=== PATIENT | female | born 1990 | race Caucasian/White ===

== ENCOUNTER → 2018-11-03 14:09 | Outpatient (POV) | payer BC, SELFPAY | PROVIDERS: Visit Provider Dermatology | DX: Z00.00 Encounter for general adult medical examination without abnormal findings (principal) ==

== ENCOUNTER → 2021-08-13 12:49 | Outpatient (CLI) | payer BC, SELFPAY | PROVIDERS: Visit Provider Internal Medicine Adolescent Medicine | DX: R35.0 Frequency of micturition (principal); B96.20 Unspecified Escherichia coli [E. coli] as the cause of diseases classified elsewhere | CPT/HCPCS: 87086; 87088; 87186 ==

== ENCOUNTER 2023-08-26 10:21 | Outpatient (CLI) | payer BC, SELFPAY ==
--- NOTE | 2023-08-26 10:29 | XR_ITS ---
FINAL REPORT TECHNIQUE: Chest PA & Lateral CLINICAL HISTORY: COUGH pt 25 weeks , shielded FINDINGS: 2 views of the chest were performed. The heart size is normal. The mediastinum is within normal limits. There is no acute cardiopulmonary process. There are no pleural effusions. There is no pneumothorax. The bony thorax appears intact. IMPRESSION: No acute cardiopulmonary process. Reviewed, Interpreted and Dictated by Brijesh Rothman III, MD Transcribed by Jamari Dorsey Authenticated and [facility]
--- NOTE | 2023-08-26 10:29 | XR_ITS ---
FINAL REPORT CLINICAL HISTORY: RT RIB PAIN pt 25 weeks , shielded FINDINGS: 2 views of the right ribs were obtained. There is no acute fracture. The visualized lungs are clear. No pneumothorax is identified. IMPRESSION: No rib fracture or pneumothorax identified. Reviewed, Interpreted and Dictated by Brijesh Rothman III, MD Transcribed by Jamari Dorsey Authenticated and [facility]
== END 2023-08-26 23:59 ==
LOC: RAD 10:22
PROVIDERS: PCP Internal Medicine Adolescent Medicine; Visit Provider Internal Medicine Adolescent Medicine
DX: R05.9 Cough, unspecified (principal); R07.81 Pleurodynia
CPT/HCPCS: 71046; 71100

== ENCOUNTER 2024-02-02 07:41 | Outpatient (CLI) | payer BC, SELFPAY ==
--- NOTE | 2024-02-02 07:44 | MR_ITS ---
FINAL REPORT TECHNIQUE: Multiplanar MR without gadolinium enhancement CLINICAL HISTORY: NEUROPATHY OF RIGHT UPPER EXTREMITY. PAIN BETWEEN SCapulas. numbness bilateral 4th digits. COMPARISON: None FINDINGS: Limited images of the posterior fossa are unremarkable. Alignment is normal. Cervical spinal cord shows normal signal and contour. C2-3: Unremarkable C3-4: There is a right lateral canal disc osteophyte complex, which results in moderate right neural foraminal narrowing. No central canal stenosis is present. C4-5: A minimal annular bulge is present without evidence of canal stenosis. C5-6: A minimal annular bulge is present without evidence of canal stenosis. C6-7: Unremarkable C7-T1: Unremarkable IMPRESSION: Right lateral canal disc osteophyte complex results in moderate right neural foraminal narrowing without evidence of central canal stenosis. Minimal annular bulges at the C4-5 and C5-6 levels. Reviewed, Interpreted and Dictated by Zakiya Wyman MD Transcribed by Danae Maradiaga Authenticated and [facility]
== END 2024-02-02 23:59 | disposition home or self-care (01) ==
LOC: RAD 07:42
PROVIDERS: PCP Internal Medicine Adolescent Medicine; Visit Provider Internal Medicine Adolescent Medicine
DX: M54.2 Cervicalgia (principal); G56.91 Unspecified mononeuropathy of right upper limb; G56.92 Unspecified mononeuropathy of left upper limb
CPT/HCPCS: 72141

== ENCOUNTER 2025-01-11 08:44 | Outpatient (RCR) | payer BC, SELFPAY ==
--- NOTE | 2025-01-11 09:53 | HMH.PTOPEV ---
PT Outpatient Evaluation Rehab PT Outpatient Evaluation Start: 01/11/25 08:50 Freq: Status: Active Protocol: Document 01/11/25 08:50 KEYONNA (Rec: 01/11/25 09:51 KEYONNA [id number]) E-signed By Kayden Roth, PT Outpatient Therapy Subjective History Subjective History Pt is a 34 yof who is referred to [facility] outpatient PT with complaints of R sided neck/ shoulder pain and occasional numbness into her R hand. The pt describes her the numbness as constantly into her 4th and 5th digits but then occasionally will be her entire hand. She describes a constant tightness into her neck and R shoulder. She also reports occasional coolness to her R hand and throbbing into her R hand. 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 Pt reports that her symptoms are worsened with sleeping, driving, mowing, holding her baby and doing [place] activity. Pt reports that she had a massage last week, which helped a lot temporarily. Occupation: [employer] agent PMH: Section x2 New diagnosis of cancer in past 12 No months? Chief Complaint Pain,Paresthesia Symptom Type Dull,Numbness,Tingling Symptoms Relieved By OTC Meds Symptoms Aggravated By Supine,Physical Activity Prior Functional Limitations None Current Functional Limitations Reaching,Housework,Desk Work/ Reading,Driving,Sleeping Symptom Description Constant but Variable,Activity Dependent Level of pain today (0-10) 5 Pain scale - at its best (0-10) 2 Pain scale - at its worst (0-10) 8 Cervical Eval Palpation Cervical Muscles R CT Junction,R Thoracic Paraspinals Cervical/Thoracic Palpation Findings Tenderness,Trigger Point Flexibility Deficits Upper Trapezius Muscle Length (R) Moderate Tightness Scalene Group Muscle Length (R) Moderate Tightness Pectoralis Minor Muscle Length (R) Moderate Tightness Passive Joint Mobility Cervical PIVM Dec: R C5/6 R C6/7 R C7/T1 AROM Cervical Spine Extension Active Range of 50 Motion (degrees) Cervical Spine Flexion Active Range of 50 Motion (degrees) Cervical Spine Right Lateral Flexion 35 Active Range of Motion (degrees) Cervical Spine Left Lateral Flexion 30 Active Range of Motion (degrees) Cervical Spine Right Rotation Active 35 Range of Motion (degrees) Cervical Spine Left Rotation Active 30 Range of Motion (degrees) MMT Right Deltoid (C5) 4 Good Biceps Brachii Strength Grade 5 Normal Wrist Extension Strength Grade 5 Normal Triceps Brachii Strength Grade 5 Normal Wrist Flexion Strength Grade 5 Normal Extensor Pollicis Longus Strength Grade 5 Normal Finger Abduction Strength Grade 5 Normal DTR Rt Biceps 1+ Lt Biceps 1+ Rt Brachioradialis 1+ Lt Brachioradialis 1+ Rt Triceps 1+ Lt Triceps 1+ Altered Sensation Right Upper extremity Dermatomes C8 Comment Slight hypo-sensation to C8 dermatome Special Test C-Spine Foraminal Compression (Spurling) Negative Left,Negative Right Test C-spine Verterbral Accessory Movements Right P/A [place] that Elicit Symptoms C-Spine Foraminal Distraction Test Negative C-Spine Compression Test Negative Left,Negative Right C-Spine Swallowing Test Negative Right Shoulder Abduction Relief Test Negative Left,Negative Right Shoulder Brachial Plexus Stretch Test Positive Right Neck Disability Index Neck Disability Index Section 1: Pain Intensity The pain is very mild at moment Section 2: Personal Care (washing, I can look after myself dressing, etc.) normally but it causes extra pain Section 3: Lifting I can lift heavy weights but it gives extra pain Section 4: Reading I can read as much as I want to with slight pain in my neck Section 5: Headaches I have moderate headaches, which come frequently Section 6: Concentration I can concentrate fully when I want to with no difficulty Section 7: Work I can do as much work as I want to Section 8: Driving I can drive my car as long as I want with slight pain in my neck Section 9: Sleeping My sleep is midly disturbed (1 -2 hrs sleepless) Section 10: Recreation I am able to engage in all my recreation activities with some pain in NDI Score 11 Miscellaneous Dx PT Eval Objective Objective T2-T7: Hypomobile Segments. Adson's: + Kwabena: + Champion's: + Rebecca Test: + for R sided first rib elevation. Rhomboid R: 3/5 UT R: 2/5 Outpatient Therapy Assessment Impairments Problems/Impairmments Palpation Tenderness,Impaired Range of Motion,Impaired Strength,Impaired Driving, Impaired Lifting,Impaired Household Care,Impaired Work Activities,Subjective C/O Pain Prognosis Rehab Potential Good Clinical Impression Consistent with Diagnosis Yes Consistent with Thoracic Outlet Syndrome (G54. 0) Additional details: Pt presents with signs and symptoms consistent with thoracic outlet syndrome. Pt presents with an elevated first rib on the right side, global tightness in her scalene muscles, pec minor, and first rib, all of which can contribute to thoracic outlet syndrome. The pt would benefit from skilled PT to address these impairments and promote a return to her PLOF. Short Term Goals Number of Weeks 4 Decreased Palpation Tenderness Yes: 2/4 to TTP to thoracic spine TTP assessment Increase Range of Motion Yes: WNL Cervical ROM Increase Strength Yes: 3+/5 to Scapulothoracic musculature Decrease Subjective C/O Pain Yes: 5/10 with above assessment Patient to be Ind w/ HEP Yes Telephonic Nurse Case Manager Goals Number of Weeks 8 Decreased Palpation Tenderness Yes: 0-1/4 to TTP assessment above Increase Range of Motion Yes: Symmetrical Rebecca's ( CRLF) Test Increase Strength Yes: 5/5 to Scapulothoracic MSK Increase Ability to Drive/Ride in Car Yes: Able to drive car for 1 hour without increasing symptoms Restore Ability to Lift Objects Overhead Yes: 2# with proper SH rhythm and without increasing symptoms Improve Ability For Household Care Yes: [place] cleaning without increasing symptoms Improve Neck Disability Index Score Yes: <4 Decrease Subjective C/O Pain Yes: 2-3/10 with above assessment Improve Self Care/Self Management Yes: Able to hold baby in Right arm without increasing symptoms Patient to be Ind w/ Advanced HEP Yes Outpatient Therapy Plan of Care Treatment Plan May Include Therapeutic Exercise Including Home Yes Exercise Program Manual Therapy Techniques Yes Neuromuscular Re-education Yes Therapeutic Activities to Return to Yes Previous Functional/Work Level Mechanical Traction Yes Dry Needling Yes Thermal Modalities Yes Electrical Stimulation Yes Ultrasound/Phonophoresis Yes Iontophoresis Yes Manual Lymphatic Drainage Yes Eval/Re-Eval Yes Frequency Times per week 2 Duration Number of Weeks 8 Addendums This patient is a candidate for social No or vocational rehab? Patient/Guardian verbally acknowledges Yes understanding of treatment program and consents to further treatment? Patient/Guardian verbally acknowledges Yes understanding of diagnosis, prognosis and goals for treatment? Eval Complexity PT Charges 23375 - Moderate Complexity Shoulder/Elbow Eval Shoulder Objective Measurements Elbow Objective Measurements PHYSICIAN CERTIFICATION: I certify the specified therapy services for Bernie Najera are required, authorized, and reviewed every 30 days.
== END 2025-01-11 23:59 | disposition home or self-care (01) ==
LOC: PT 08:44
PROVIDERS: PCP Internal Medicine Adolescent Medicine; Visit Provider Internal Medicine Adolescent Medicine
DX: G54.0 Brachial plexus disorders (principal)
CPT/HCPCS: 97163

== ENCOUNTER 2025-02-10 08:00 | Outpatient (RCR) | payer BC, SELFPAY ==
--- NOTE | 2025-02-10 09:27 | HMH.RHREAS ---
Rehab Reassessment Rehab OP Re-assessment Start: 01/17/25 08:10 Freq: Status: Active Protocol: Document 02/10/25 08:20 KEYONNA (Rec: 02/10/25 09:27 KEYONNA [id number]) E-signed By Kayden Roth, PT Neck Disability Index Neck Disability Index Section 1: Pain The pain is moderate at the moment Intensity Section 2: Personal I can look after myself normally but it causes extra Care (washing, pain dressing, etc.) Section 3: Lifting I can lift heavy weights but it gives extra pain Section 4: Reading I can read as much as I want to with no pain in my neck Section 5: Headaches I have moderate headaches, which come infrequently Section 6: I can concentrate fully when I want to with no Concentration difficulty Section 7: Work I can do as much work as I want to Section 8: Driving I can drive my car without any neck pain Section 9: Sleeping My sleep is moderately disturbed (2-3 hrs. sleepless) Section 10: I am able to engage in all my recreation activities Recreation with no neck pain NDI Score 9 Rehab Re-assessment Subjective Subjective Pt reports that she is 10-15% improved. Reports that her symptoms continue to be random but seemed to be worse after she is very active. Reports that she was working in the [employer] field and that made her symptoms flare up. This week, she has not done as much and her symptoms have been calmer. Pt reports that she has not returned to her PCP. Pt reports that her pain is a 3-4/ 10 throughout today's treatment session. Reports that she is agreeable to do 1 more month of PT to see if she can make any progress, if not, she will seek alternative care. Objective Objective Notes NDI: 9 (11 on IE) ROM: CROM WNL - Rebecca's: + on R side for rib hypomobility. MMT: Rhomboids 4/5, UT 3+/5 Palpation Assessment: - Hypomobile segments at T2-T7, TTP 1/4. Palpable TrP at catarino-scapular (R) musculature, TTP 2/4. Assessment Progress Assessment Progressing as Expected Assessment Notes Pt has undergone one month of skilled PT with an emphasis on improving scapulothoracic strength and muscular imbalances. Pt has demonstrated modest improvements thus far. Her episodes of symptoms remain random and are reproduced with TOS tests. Pt continues to demonstrate tightness of her R first rib, as well as weakness of her scapular retractors, however she has demonstrated some improvements in these areas. Pt would continue to benefit from skilled PT to continue to address her remaining impairments and promote a return to her PLOF. Patient goals met ST LT Plan Plan Continue as per initial POC Frequency of Therapy 2/week Duration of therapy 4 weeks Time and Billing Re-Eval Time 10 Re-Eval Billing 1 Units Charge for PT Yes reassessment? PHYSICIAN CERTIFICATION: I certify the specified therapy services for Bernie Najera are required, authorized, and reviewed every 30 days.
== END 2025-02-10 23:59 | disposition home or self-care (01) ==
LOC: PT 08:00
PROVIDERS: PCP Internal Medicine Adolescent Medicine; Visit Provider Internal Medicine Adolescent Medicine
DX: G54.0 Brachial plexus disorders (principal)
CPT/HCPCS: 97012; 97014; 97035; 97110; 97140; 97164; G0283